=== PATIENT | male | born 1985 | race Caucasian/White ===

== ENCOUNTER 2016-06-24 10:22 | Emergency (ER) | payer OTHER ==
--- NOTE | 2016-06-24 11:25 | EDPHY ---
H & P Stated Complaint: COUGH, SINUS CONGESTION, ST X3-4 WEEKS HPI/ROS: CHIEF COMPLAINT: Cold symptoms for a month, sinus pressure HISTORY OF PRESENT ILLNESS: patient says that for about a month he has had cold and flu-like symptoms. Symptoms were present for the 1st couple weeks and resolved. However a few days later that returned. He now has several days of mild cough, sinus congestion and body aches. NO headache. No chest pain. NO shortness of breath. The sinus congestion is in the maxillary regions, but he does not have a runny nose with this. Some fever but no chills. No abdominal pain or urinary complaints. He did have nausea several weeks ago but not at this time. NO other associated complaints or modifying factors. Says that he is around multiple people who have been sick recently. REVIEW OF SYSTEMS: Ten systems reviewed and are negative unless otherwise noted in the HPI EXAMINATION General Appearance: Alert, no distress Head: normocephalic, atraumatic Eyes: Pupils equal and round, no conjunctival pallor or injection . EOMs intact. ENT, Mouth: Mucous membranes moist . Uvula midline. No erythema or edema. There is tenderness to bilateral maxillary sinuses. Neck: Normal inspection, supple, non-tender Respiratory: Lungs are clear to auscultation . No wheezing, rhonchi or crackles. Cardiovascular: Regular rate and rhythm . NO murmur. Pulses intact distally. Gastrointestinal: Abdomen is soft and nontender . No CVA tenderness Back: non-tender, no bony abnormalities Neurological: A&O, nonfocal, normal gait Skin: Warm and dry, no rash. No petechiae or purpura Extremities: Nontender, no pedal edema Psychiatric: Mood and affect normal MDM: 11:20 a.m. cough, congestion and sinus tenderness. Likely a sinus infection. Symptoms have been present for several weeks. We discussed likely the viral versus bacterial. Given the duration of symptoms we will trial him with Zithromax. Also recommend Mucinex DM, anti-inflammatories [id number] and pseudoephedrine as needed. Follow up with primary care physician for further care. Vital signs were well within normal limits I do not feel he needs any laboratory studies. He has declined flu test. he is comfortable with this plan and discharged home with a work note and follow-up instructions. SUPERVISION: Independently evaluated Source: Patient - Personal History Current Tetanus/Diphtheria Vaccine: Yes Current Tetanus Diphtheria and Acellular Pertussis (TDAP): Yes - Medical/Surgical History Hx Asthma: No Hx Chronic Respiratory Disease: No Hx Diabetes: No Hx Cardiac Disease: No Hx Renal Disease: No Hx Cirrhosis: No Hx Alcoholism: No Hx HIV/AIDS: No Hx Splenectomy or Spleen Trauma: No Other PMH: PSH- ORTHO - Social History Smoking Status: Heavy smoker Constitutional: Initial Vital Signs Temperature (C) 97.9 F 06/24/16 10:27 Heart Rate 85 06/24/16 10:27 Respiratory Rate 18 06/24/16 10:27 Blood Pressure 125/83 H 06/24/16 10:27 O2 Sat (%) 98 06/24/16 10:27 O2 Delivery Mode Room Air Allergies/Adverse Reactions: Penicillins Allergy (Verified 06/24/16 10:27) Home Medications: Medication Instructions Recorded Azithromycin [Zithromax] 250 mg PO DAILY #6 tab 06/24/16 Departure - Departure Disposition: Home, Routine, Self-Care Clinical Impression: Sinusitis, acute maxillary Qualifiers: Recurrence: not specified as recurrent Qualified Code(s): J01.00 - Acute maxillary sinusitis, unspecified Upper respiratory infection Qualifiers: URI type: unspecified viral URI Qualified Code(s): J06.9 - Acute upper respiratory infection, unspecified Condition: Good Instructions: Guaifenesin (By mouth), Sinusitis (ED), Upper Respiratory Infection (ED) Additional Instructions: Follow-up with primary care physician. Return to ER for any chest pain or shortness of breath Referrals: NONE *PRIMARY CARE P,. [Primary Care Provider] - As per Instructions [facility] [Outside] - As per Instructions Stand Alone Forms: Statement of Treatment, Work Excuse Prescriptions: Azithromycin [Zithromax] 250 mg PO DAILY #6 tab
[2016-06-24 11:37] VITALS: BP 130/78; PULSE 74; RESP 14; TEMP 98.4; O2SAT 94
== END 2016-06-24 11:37 | disposition home or self-care (01) ==
DX: J01.00 Acute maxillary sinusitis, unspecified (principal); J06.9 Acute upper respiratory infection, unspecified; F17.200 Nicotine dependence, unspecified, uncomplicated